=== PATIENT | female | born 1960 | race Caucasian/White ===

== ENCOUNTER 2016-08-11 14:50 | Outpatient (CLI) | payer OTHER ==
[~2016-08-11] VITALS: Ht 160 cm; Wt 111.4 kg
[~2016-08-11 14:50] MED LIST: CALC500C16 PO; CALC600T10; CALC600T3 PO; CALCCHW12 OR; CALCTAB22 OR; FERR325T; GLUC1CAP10 PO; IRON28TA; LISI10TA2 PO; LISI10TA4 OR; LISI5TAB; LISI5TAB OR; MULT1TAB10 PO; MULTIVIT; MULTIVIT OR; PEPC1TAB4 PO; PEPC20TA2; PEPC20TA2 OR; ROLAIDS; ROLAIDS OR; SOLU500I IV; TUMS500C OR; VITA50003 PO; VITAMIN D50000 UNT OR; methylPREDNISolone 500 MG, VIAL MATE ADAPTER 1 EACH in D5W 250 ML IV ONE
== END 2016-08-11 16:25 | disposition home or self-care (01) ==
LOC: M INFU 14:50
PROVIDERS: ATTEND Psychiatry & Neurology Neurology
DX: G35 Multiple sclerosis (principal)
CPT/HCPCS: 96365; J2930

== ENCOUNTER 2016-09-08 14:43 | Outpatient (CLI) | payer OTHER ==
[~2016-09-08] VITALS: Ht 160 cm; Wt 111.4 kg
== END 2016-09-08 16:30 | disposition home or self-care (01) ==
LOC: M INFU 14:43
PROVIDERS: ATTEND Psychiatry & Neurology Neurology
DX: G35 Multiple sclerosis (principal)
CPT/HCPCS: 96365; J2930

== ENCOUNTER 2016-10-06 12:44 | Outpatient (CLI) | payer OTHER ==
[~2016-10-06 12:44] MED LIST changes: -methylPREDNISolone 500 MG, VIAL MATE ADAPTER 1 EACH in D5W 250 ML IV ONE
[2016-10-06] MEDS ORDERED: methylPREDNISolone 500 MG, VIAL MATE ADAPTER 1 EACH in D5W 250 ML IV ONE (13:00)
== END 2016-10-06 14:35 | disposition home or self-care (01) ==
LOC: M INFU 12:44
PROVIDERS: ATTEND Psychiatry & Neurology Neurology
DX: G35 Multiple sclerosis (principal)
CPT/HCPCS: 96365; J2930

== ENCOUNTER 2016-11-10 14:47 | Outpatient (CLI) | payer OTHER ==
[~2016-11-10] VITALS: Ht 160 cm; Wt 111.4 kg
[~2016-11-10 14:47] MED LIST changes: +methylPREDNISolone 500 MG, VIAL MATE ADAPTER 1 EACH in D5W 250 ML IV ONE
== END 2016-11-10 16:30 | disposition home or self-care (01) ==
LOC: M INFU 14:47
PROVIDERS: ATTEND Psychiatry & Neurology Neurology
DX: G35 Multiple sclerosis (principal); Z79.899 Other long term (current) drug therapy; Z79.82 Long term (current) use of aspirin; I10 Essential (primary) hypertension; E78.00 Pure hypercholesterolemia, unspecified; D69.6 Thrombocytopenia, unspecified
CPT/HCPCS: 96365; J2930

== ENCOUNTER 2016-12-15 14:56 | Outpatient (CLI) | payer OTHER ==
[~2016-12-15] VITALS: Ht 160 cm; Wt 111.4 kg
== END 2016-12-15 16:50 | disposition home or self-care (01) ==
LOC: M INFU 14:56
PROVIDERS: ATTEND Psychiatry & Neurology Neurology
DX: G35 Multiple sclerosis (principal); Z88.8 Allergy status to other drugs, medicaments and biological substances; Z79.899 Other long term (current) drug therapy
CPT/HCPCS: 96365; J2930

== ENCOUNTER 2017-01-12 14:53 | Outpatient (CLI) | payer OTHER ==
[~2017-01-12] VITALS: Ht 160 cm; Wt 111.4 kg
[~2017-01-12 14:53] MED LIST changes: +VITA1CAP40 PO; -VITA50003 PO
== END 2017-01-12 16:45 ==
LOC: M INFU 14:53
PROVIDERS: ATTEND Psychiatry & Neurology Neurology
DX: G35 Multiple sclerosis (principal); Z79.899 Other long term (current) drug therapy; I10 Essential (primary) hypertension; E78.00 Pure hypercholesterolemia, unspecified; D69.6 Thrombocytopenia, unspecified
CPT/HCPCS: 96365; J2930

== ENCOUNTER 2017-02-16 14:49 | Outpatient (CLI) | payer OTHER ==
[~2017-02-16 14:49] MED LIST changes: -methylPREDNISolone 500 MG, VIAL MATE ADAPTER 1 EACH in D5W 250 ML IV ONE
[2017-02-16] MEDS ORDERED: methylPREDNISolone 500 MG, VIAL MATE ADAPTER 1 EACH in D5W 250 ML IV ONE (16:00)
== END 2017-02-16 16:50 | disposition home or self-care (01) ==
LOC: M INFU 14:49
PROVIDERS: ATTEND Psychiatry & Neurology Neurology
DX: G35 Multiple sclerosis (principal); Z79.899 Other long term (current) drug therapy; I10 Essential (primary) hypertension; D69.6 Thrombocytopenia, unspecified; Z85.038 Personal history of other malignant neoplasm of large intestine; Z88.8 Allergy status to other drugs, medicaments and biological substances
CPT/HCPCS: 96365; J2930

== ENCOUNTER 2017-03-16 14:50 | Outpatient (CLI) | payer OTHER ==
[~2017-03-16 14:50] MED LIST changes: +methylPREDNISolone 500 MG, VIAL MATE ADAPTER 1 EACH in D5W 250 ML IV ONE
== END 2017-03-16 16:10 | disposition home or self-care (01) ==
LOC: M INFU 14:50
PROVIDERS: ATTEND Psychiatry & Neurology Neurology
DX: G35 Multiple sclerosis (principal); I10 Essential (primary) hypertension; D69.6 Thrombocytopenia, unspecified; Z88.8 Allergy status to other drugs, medicaments and biological substances; Z79.899 Other long term (current) drug therapy
CPT/HCPCS: 96365; J2930

== ENCOUNTER → 2017-05-22 | Outpatient (CLI) | payer OTHER ==
[~2017-05-22] MED LIST changes: -methylPREDNISolone 500 MG, VIAL MATE ADAPTER 1 EACH in D5W 250 ML IV ONE
[2017-05-22 16:20] LABS: BLOOD UREA NITROGEN 15 MG/DL (7-18); CREATININE FOR GFR 0.78 MG/DL (0.55-1.02); GLOMERULAR FILTRATION RATE > 60.0 (>51)
== END ==
LOC: M LAB 15:05
PROVIDERS: ATTEND Psychiatry & Neurology Neurology
DX: I10 Essential (primary) hypertension (principal)

== ENCOUNTER 2017-05-25 14:51 | Outpatient (CLI) | payer OTHER ==
[2017-05-25] MEDS ORDERED: methylPREDNISolone 500 MG, VIAL MATE ADAPTER 1 EACH in D5W 250 ML IV ONE (15:00)
== END 2017-05-25 16:20 | disposition home or self-care (01) ==
LOC: M INFU 14:51
PROVIDERS: ATTEND Psychiatry & Neurology Neurology
DX: G35 Multiple sclerosis (principal); Z85.038 Personal history of other malignant neoplasm of large intestine; Z92.21 Personal history of antineoplastic chemotherapy; Z88.8 Allergy status to other drugs, medicaments and biological substances; Z79.899 Other long term (current) drug therapy
CPT/HCPCS: 96365; J2930

== ENCOUNTER 2017-06-29 13:56 | Outpatient (CLI) | payer OTHER ==
[2017-06-29] MEDS: methylPREDNISolone 500 MG, VIAL MATE ADAPTER 1 EACH in D5W 250 ML IV (14:10)
== END 2017-06-29 15:30 ==
LOC: M INFU 13:56
DX: G35 Multiple sclerosis (principal); I10 Essential (primary) hypertension; Z79.899 Other long term (current) drug therapy; Z88.8 Allergy status to other drugs, medicaments and biological substances; D69.6 Thrombocytopenia, unspecified
CPT/HCPCS: 96365

== ENCOUNTER 2017-07-27 14:54 | Outpatient (CLI) | payer OTHER ==
[2017-07-27] MEDS: methylPREDNISolone 500 MG, VIAL MATE ADAPTER 1 EACH in D5W 250 ML IV (15:26)
== END 2017-07-27 16:30 | disposition home or self-care (01) ==
LOC: M INFU 14:54
DX: G35 Multiple sclerosis (principal); I10 Essential (primary) hypertension; Z79.899 Other long term (current) drug therapy; Z88.8 Allergy status to other drugs, medicaments and biological substances
CPT/HCPCS: J2930

== ENCOUNTER 2017-08-24 14:51 | Outpatient (CLI) | payer OTHER ==
[2017-08-24] MEDS: methylPREDNISolone 500 MG, VIAL MATE ADAPTER 1 EACH in D5W 250 ML IV (15:16)
== END 2017-08-24 16:30 | disposition home or self-care (01) ==
LOC: M INFU 14:51
DX: G35 Multiple sclerosis (principal); Z79.899 Other long term (current) drug therapy; Z88.8 Allergy status to other drugs, medicaments and biological substances
CPT/HCPCS: J2930

== ENCOUNTER 2017-10-26 13:46 | Outpatient (CLI) | payer OTHER ==
[2017-10-26] MEDS: methylPREDNISolone 500 MG, VIAL MATE ADAPTER 1 EACH in D5W 250 ML IV (14:08)
== END 2017-10-26 15:20 ==
LOC: M INFU 13:46
DX: G35 Multiple sclerosis (principal); I10 Essential (primary) hypertension; D64.9 Anemia, unspecified; Z79.899 Other long term (current) drug therapy; Z88.8 Allergy status to other drugs, medicaments and biological substances
CPT/HCPCS: J2930

== ENCOUNTER → 2017-11-05 | Outpatient (REF) | payer OTHER ==
[2017-11-05 13:02] LABS: BASO % 0.3 % (0.0-1.0); EOS # 0.1 10^3/uL (0.0-0.50); EOS % 1.3 % (0.0-3.0); HEMATOCRIT 42.3 % (36.0-47.0); HEMOGLOBIN 14.4 g/dl (12.0-15.5); IMMATURE GRANULOCYTE % 0.4 % (0-3.0); LYMPH # 2.4 10^3/uL (1.5-4.5); LYMPH % 26.4 % (24.0-44.0); MEAN CORPUSCULAR HEMOGLOBIN 28.3 pg (27.0-33.0); MEAN CORPUSCULAR VOLUME 83.1 fl (80.0-96.0); MONO # 0.7 10^3/uL (0.0-0.8); MONO % 7.8 % (0.0-5.0); NEUTROPHILS # 5.8 10^3/uL (1.8-7.7); NEUTROPHILS % 63.8 % (36.0-66.0); RED BLOOD COUNT 5.09 10^6/uL (4.00-5.40); RED CELL DISTRIBUTION WIDTH 13.1 % (11.5-14.5); WHITE BLOOD COUNT 9.1 10^3/uL (4.0-10.0)
[2017-11-05 13:47] LABS: PLATELET COUNT, AUTOMATED 35 10^3/uL (150-450)
[2017-11-05 13:48] LABS: IMMATURE PLATELET FRACTION % 18.7 % (0.0-9.6)
[2017-11-05 14:03] LABS: FOLATE > 24.0 NG/ML; VITAMIN B12 LEVEL 428 PG/ML
[2017-11-05 14:21] LABS: ALBUMIN 3.7 GM/DL (3.2-5.2); ALBUMIN/GLOBULIN RATIO 1.28 (1.00-1.93); ALKALINE PHOSPHATASE 90 U/L (45-117); ALT/SGPT 26 U/L (12-78); ANION GAP 8 MEQ/L (8-16); AST/SGOT 13 U/L (7-37); BILIRUBIN,TOTAL 0.4 MG/DL (0.2-1.0); BLOOD UREA NITROGEN 19 MG/DL (7-18); CALCIUM LEVEL 9.1 MG/DL (8.5-10.1); CARBON DIOXIDE LEVEL 27 MEQ/L (21-32); CHLORIDE LEVEL 108 MEQ/L (98-107); CREATININE FOR GFR 0.77 MG/DL (0.55-1.30); GLOMERULAR FILTRATION RATE > 60.0 (>51); GLUCOSE, FASTING 81 MG/DL (70-100); POTASSIUM SERUM 3.7 MEQ/L (3.5-5.1); SODIUM LEVEL 143 MEQ/L (136-145); TOTAL PROTEIN 6.6 GM/DL (6.4-8.2)
== END ==
LOC: M LABNEURO 11:05
DX: G35 Multiple sclerosis (principal)
CPT/HCPCS: 82746

== ENCOUNTER 2017-11-18 08:53 | Emergency (ER) | payer OTHER ==
[2017-11-18 09:46] LABS: HEMATOCRIT 41.7 % (36.0-47.0); HEMOGLOBIN 14.1 g/dl (12.0-15.5); MEAN CORPUSCULAR HEMOGLOBIN 28.1 pg (27.0-33.0); MEAN CORPUSCULAR HGB CONC 33.8 g/dl (32.0-36.5); MEAN CORPUSCULAR VOLUME 83.1 fl (80.0-96.0); RED BLOOD COUNT 5.02 10^6/uL (4.00-5.40); WHITE BLOOD COUNT 6.1 10^3/uL (4.0-10.0)
[2017-11-18 09:56] LABS: ANION GAP 6 MEQ/L (8-16); BLOOD UREA NITROGEN 13 MG/DL (7-18); CALCIUM LEVEL 8.5 MG/DL (8.5-10.1); CARBON DIOXIDE LEVEL 29 MEQ/L (21-32); CHLORIDE LEVEL 108 MEQ/L (98-107); CREATININE FOR GFR 0.84 MG/DL (0.55-1.30); GLOMERULAR FILTRATION RATE > 60.0 (>51); GLUCOSE, FASTING 99 MG/DL (70-100); POTASSIUM SERUM 3.7 MEQ/L (3.5-5.1); SODIUM LEVEL 143 MEQ/L (136-145)
[2017-11-18 10:01] LABS: INR 0.94; PROTHROMBIN TIME 12.7 SECONDS (12.4-14.5)
[2017-11-18 10:02] LABS: PARTIAL THROMBOPLASTIN TIME 29.8 SECONDS (26.8-37.9)
[2017-11-18 10:10] LABS: PLATELET COUNT, AUTOMATED 49 10^3/uL (150-450)
[2017-11-18 10:11] LABS: IMMATURE PLATELET FRACTION % 13.2 % (0.0-9.6)
== END 2017-11-18 12:03 | disposition home or self-care (01) ==
LOC: M ED 08:53
DX: N93.8 Other specified abnormal uterine and vaginal bleeding (principal); G35 Multiple sclerosis; D69.3 Immune thrombocytopenic purpura; Z79.899 Other long term (current) drug therapy; Z88.8 Allergy status to other drugs, medicaments and biological substances
CPT/HCPCS: 76856

== ENCOUNTER 2017-11-30 14:52 | Outpatient (CLI) | payer OTHER ==
[2017-11-30] MEDS: methylPREDNISolone 500 MG, VIAL MATE ADAPTER 1 EACH in D5W 250 ML IV (15:20)
== END 2017-11-30 16:35 | disposition home or self-care (01) ==
LOC: M INFU 14:52
DX: G35 Multiple sclerosis (principal); I10 Essential (primary) hypertension; Z79.899 Other long term (current) drug therapy; Z88.8 Allergy status to other drugs, medicaments and biological substances
CPT/HCPCS: J2930

== ENCOUNTER 2017-12-28 14:49 | Outpatient (CLI) | payer OTHER ==
[2017-12-28] MEDS: methylPREDNISolone 500 MG, VIAL MATE ADAPTER 1 EACH in D5W 250 ML IV (15:09)
== END 2017-12-28 16:25 | disposition home or self-care (01) ==
LOC: M INFU 14:49
DX: G35 Multiple sclerosis (principal); Z88.8 Allergy status to other drugs, medicaments and biological substances; Z79.899 Other long term (current) drug therapy
CPT/HCPCS: J2930

== ENCOUNTER 2018-01-25 15:01 | Outpatient (CLI) | payer OTHER ==
[2018-01-25] MEDS: methylPREDNISolone 500 MG, VIAL MATE ADAPTER 1 EACH in D5W 250 ML IV (15:18)
== END 2018-01-25 16:30 | disposition home or self-care (01) ==
LOC: M INFU 15:01
DX: G35 Multiple sclerosis (principal); Z79.899 Other long term (current) drug therapy; Z88.8 Allergy status to other drugs, medicaments and biological substances
CPT/HCPCS: J2930

== ENCOUNTER 2018-03-01 14:52 | Outpatient (CLI) | payer OTHER ==
[2018-03-01] MEDS: methylPREDNISolone 500 MG, VIAL MATE ADAPTER 1 EACH in D5W 250 ML IV (15:21)
== END 2018-03-01 16:35 | disposition home or self-care (01) ==
LOC: M INFU 14:52
DX: G35 Multiple sclerosis (principal); M12.9 Arthropathy, unspecified; D69.3 Immune thrombocytopenic purpura; Z79.899 Other long term (current) drug therapy; Z88.8 Allergy status to other drugs, medicaments and biological substances; Z91.048 Other nonmedicinal substance allergy status; Z90.710 Acquired absence of both cervix and uterus; Z90.49 Acquired absence of other specified parts of digestive tract
CPT/HCPCS: J2930

== ENCOUNTER 2018-03-21 12:44 | Day surgery (SDC) | payer OTHER ==
[~2018-03-21 12:44] MED LIST changes: -CALC500C16 PO; -CALC600T10; -CALC600T3 PO; -CALCCHW12 OR; -CALCTAB22 OR; -FERR325T; -GLUC1CAP10 PO; -IRON28TA; +LIDOCAINE 1% MDV 20ML VIAL SQ; -LISI10TA2 PO; -LISI10TA4 OR; -LISI5TAB; -LISI5TAB OR; +LR 1,000 ML IV; -MULT1TAB10 PO; -MULTIVIT; -MULTIVIT OR; -PEPC1TAB4 PO; -PEPC20TA2; -PEPC20TA2 OR; -ROLAIDS; -ROLAIDS OR; -SOLU500I IV; -TUMS500C OR; -VITA1CAP40 PO; -VITAMIN D50000 UNT OR
[2018-03-21 13:05] LABS: HEMATOCRIT 41.3 % (36.0-47.0); HEMOGLOBIN 13.8 g/dl (12.0-15.5); MEAN CORPUSCULAR HEMOGLOBIN 28.2 pg (27.0-33.0); MEAN CORPUSCULAR HGB CONC 33.4 g/dl (32.0-36.5); MEAN CORPUSCULAR VOLUME 84.3 fl (80.0-96.0); PLATELET COUNT, AUTOMATED 243 10^3/uL (150-450); RED CELL DISTRIBUTION WIDTH 13.1 % (11.5-14.5); WHITE BLOOD COUNT 7.1 10^3/uL (4.0-10.0)
[2018-03-21] MEDS ORDERED: METOCLOPRAMIDE INJ 10MG/2ML VIAL (J2765) As Ordered (13:21)
[2018-03-21] MEDS ORDERED: PROPOFOL 200 MG/20 ML VIAL As Ordered (13:21)
[2018-03-21] MEDS ORDERED: LIDOCAINE 2% INJ 100 MG/5 ML SDV (FOR ANES.) As Ordered (13:21)
[2018-03-21] MEDS ORDERED: ONDANSETRON 4MG/2ML VIAL (J2405) As Ordered (13:21)
[2018-03-21] MEDS ORDERED: fentaNYL 100 MCG/2 ML INJECTION (J3010) As Ordered (13:22)
[2018-03-21] MEDS ORDERED: MIDAZOLAM INJ 2 MG/2 ML VIAL (J2250) As Ordered (13:22)
[2018-03-21] MEDS: SILVER NITRATE APPLICATOR As Ordered (13:23)
[2018-03-21] MEDS: LIDOCAINE W/EPINEPHRINE 1% 20ML VIAL As Ordered (14:39)
[2018-03-21] MEDS ORDERED: LR 1,000 ML IV ×2 (15:30→15:45)
[2018-03-21] MEDS ORDERED: fentaNYL 100 MCG/2 ML INJECTION (J3010) IV (15:30)
[2018-03-21] MEDS ORDERED: ONDANSETRON 4MG/2ML VIAL (J2405) IV (15:30)
[2018-03-21] MEDS ORDERED: PERCOCET 5MG/325MG TAB PO (15:30)
== END 2018-03-21 17:20 | disposition home or self-care (01) ==
LOC: M SDC 12:44
DX: N84.0 Polyp of corpus uteri (principal); N95.0 Postmenopausal bleeding; I10 Essential (primary) hypertension; K21.9 Gastro-esophageal reflux disease without esophagitis; G35 Multiple sclerosis; Z92.21 Personal history of antineoplastic chemotherapy; Z85.00 Personal history of malignant neoplasm of unspecified digestive organ; Z79.899 Other long term (current) drug therapy
CPT/HCPCS: 58558

== ENCOUNTER 2018-04-26 14:49 | Outpatient (CLI) | payer OTHER ==
[2018-04-26] MEDS: methylPREDNISolone 500 MG, VIAL MATE ADAPTER 1 EACH in D5W 250 ML IV (15:07)
== END 2018-04-26 16:25 | disposition home or self-care (01) ==
LOC: M INFU 14:49
DX: G35 Multiple sclerosis (principal)
CPT/HCPCS: J2930

== ENCOUNTER → 2018-04-30 | Outpatient (CLI) | payer OTHER | LOC: M RAD 08:43 | DX: Z12.31 Encounter for screening mammogram for malignant neoplasm of breast (principal) | CPT/HCPCS: 77067 ==

== ENCOUNTER 2018-05-31 15:03 | Outpatient (CLI) | payer OTHER ==
[2018-05-31] MEDS: methylPREDNISolone 500 MG, VIAL MATE ADAPTER 1 EACH in D5W 250 ML IV (15:50)
== END 2018-05-31 17:00 | disposition home or self-care (01) ==
LOC: M INFU 15:03
DX: G35 Multiple sclerosis (principal)
CPT/HCPCS: J2930

== ENCOUNTER 2018-06-28 14:50 | Outpatient (CLI) | payer OTHER ==
[~2018-06-28] VITALS: Ht 157.5 cm; Wt 118.1 kg
[~2018-06-28 14:50] MED LIST changes: +CALC500C16 PO; +CALC600T10; +CALC600T3 PO; +CALC600T57 PO; +CALCCHW12 OR; +CALCTAB22 OR; +FERR325T; +GLUC1CAP10 PO; +GREE1CAP5 PO; +IRON28TA; +KELP100T PO; -LIDOCAINE 1% MDV 20ML VIAL SQ; +LISI10TA2 PO; +LISI10TA4 OR; +LISI5TAB; +LISI5TAB OR; -LR 1,000 ML IV; +MULT1TAB10 PO; +MULTIVIT; +MULTIVIT OR; +PEPC1TAB5 PO; +PEPC20TA2; +PEPC20TA2 OR; +PERCOCET PO; +ROLAIDS; +ROLAIDS OR; +SOLU500I IV; +TUMS500C OR; +VITA50005 PO; +VITAMIN D50000 UNT OR
[2018-06-28 14:55] VITALS: BP 118/65
[2018-06-28] MEDS ORDERED: methylPREDNISolone 500 MG, VIAL MATE ADAPTER 1 EACH in D5W 250 ML IV ONE (15:00)
[2018-06-28 16:40] VITALS: BP 129/60
== END 2018-06-28 16:45 | disposition home or self-care (01) ==
LOC: M INFU 14:50
PROVIDERS: ATTEND Psychiatry & Neurology Neurology
DX: G35 Multiple sclerosis (principal); Z79.899 Other long term (current) drug therapy; Z88.8 Allergy status to other drugs, medicaments and biological substances; Z91.048 Other nonmedicinal substance allergy status
CPT/HCPCS: 96365; 96366; J2930

== ENCOUNTER 2018-07-26 15:03 | Outpatient (CLI) | payer OTHER ==
[~2018-07-26] VITALS: Ht 157.5 cm; Wt 118.1 kg
[~2018-07-26 15:03] MED LIST changes: +methylPREDNISolone 500 MG, VIAL MATE ADAPTER 1 EACH in D5W 250 ML IV ONE
[2018-07-26 15:10] VITALS: BP 144/74
[2018-07-26 16:30] VITALS: BP 133/68
== END 2018-07-26 16:30 | disposition home or self-care (01) ==
LOC: M INFU 15:03
PROVIDERS: ATTEND Psychiatry & Neurology Neurology
DX: G35 Multiple sclerosis (principal)
CPT/HCPCS: 96365; J2930

== ENCOUNTER 2018-08-23 15:04 | Outpatient (CLI) | payer OTHER ==
[~2018-08-23] VITALS: Ht 157.5 cm; Wt 118.0 kg
[2018-08-23 15:05] VITALS: BP 108/61
[2018-08-23 16:44] VITALS: BP 127/67
== END 2018-08-23 16:45 | disposition home or self-care (01) ==
LOC: M INFU 15:04
PROVIDERS: ATTEND Psychiatry & Neurology Neurology
DX: G35 Multiple sclerosis (principal)
CPT/HCPCS: 96365; J2930

== ENCOUNTER 2018-09-27 15:14 | Outpatient (CLI) | payer OTHER ==
[~2018-09-27] VITALS: Ht 154.9 cm; Wt 118.1 kg
[2018-09-27 15:10] VITALS: BP 138/66
[~2018-09-27 15:14] MED LIST changes: -methylPREDNISolone 500 MG, VIAL MATE ADAPTER 1 EACH in D5W 250 ML IV ONE
[2018-09-27] MEDS ORDERED: methylPREDNISolone 500 MG VIAL (J2930) As Ordered ONE (15:27)
[2018-09-27] MEDS ORDERED: methylPREDNISolone 500 MG, VIAL MATE ADAPTER 1 EACH in D5W 250 ML IV ONE (15:30)
[2018-09-27 17:04] VITALS: BP 139/68
== END 2018-09-27 17:00 | disposition home or self-care (01) ==
LOC: M INFU 15:14
PROVIDERS: ATTEND Psychiatry & Neurology Neurology
DX: G35 Multiple sclerosis (principal)
CPT/HCPCS: 96365; J2930

== ENCOUNTER 2018-10-25 14:51 | Outpatient (CLI) | payer OTHER ==
[~2018-10-25] VITALS: Ht 157.5 cm; Wt 118.0 kg
[~2018-10-25 14:51] MED LIST changes: +methylPREDNISolone 500 MG, VIAL MATE ADAPTER 1 EACH in D5W 250 ML IV ONE
[2018-10-25 15:00] VITALS: BP 140/62
[2018-10-25 16:18] VITALS: BP 131/62
== END 2018-10-25 16:15 | disposition home or self-care (01) ==
LOC: M INFU 14:51
PROVIDERS: ATTEND Psychiatry & Neurology Neurology
DX: G35 Multiple sclerosis (principal)
CPT/HCPCS: 96365; J2930

== ENCOUNTER → 2018-11-08 | Outpatient (CLI) | payer OTHER ==
[~2018-11-08] MED LIST changes: -methylPREDNISolone 500 MG, VIAL MATE ADAPTER 1 EACH in D5W 250 ML IV ONE
[2018-11-08 16:49] LABS: BLOOD UREA NITROGEN 16 MG/DL (7-18); CREATININE FOR GFR 0.86 MG/DL (0.55-1.30); GLOMERULAR FILTRATION RATE > 60.0 (>51)
== END ==
LOC: M WUC 12:29
PROVIDERS: ATTEND Psychiatry & Neurology Neurology
DX: G35 Multiple sclerosis (principal); I10 Essential (primary) hypertension

== ENCOUNTER 2019-01-03 14:50 | Outpatient (CLI) | payer OTHER ==
[~2019-01-03] VITALS: Ht 154.9 cm; Wt 118.0 kg
[~2019-01-03 14:50] MED LIST changes: +LISI10TA15 PO; -LISI10TA2 PO
[2019-01-03 14:55] VITALS: BP 120/65
[2019-01-03] MEDS ORDERED: methylPREDNISolone 500 MG, VIAL MATE ADAPTER 1 EACH in D5W 250 ML IV ONE (15:15)
[2019-01-03 16:20] VITALS: BP 131/74
[2019-01-31] MEDS ORDERED: OMEP40CA97 PO (15:27)
== END 2019-01-03 16:25 | disposition home or self-care (01) ==
LOC: M INFU 14:50
PROVIDERS: ATTEND Psychiatry & Neurology Neurology
DX: G35 Multiple sclerosis (principal)
CPT/HCPCS: 96365; J2930

== ENCOUNTER 2019-01-31 14:53 | Outpatient (CLI) | payer OTHER ==
[~2019-01-31] VITALS: Ht 157.5 cm; Wt 118.0 kg
[~2019-01-31 14:53] MED LIST changes: -LISI10TA15 PO; +LISI10TA2 PO
[2019-01-31 15:00] VITALS: BP 128/79
[2019-01-31] MEDS ORDERED: OMEP40CA2 PO (15:27)
[2019-01-31] MEDS ORDERED: methylPREDNISolone 500 MG, VIAL MATE ADAPTER 1 EACH in D5W 250 ML IV ONE (15:30)
[2019-01-31] MEDS ORDERED: APPLTAB3 PO (15:30)
[2019-01-31] MEDS ORDERED: ACET-861 PO (15:31)
[2019-01-31 16:25] VITALS: BP 121/73
== END 2019-01-31 16:25 | disposition home or self-care (01) ==
LOC: M INFU 14:53
PROVIDERS: ATTEND Psychiatry & Neurology Neurology
DX: G35 Multiple sclerosis (principal)
CPT/HCPCS: 96365; J2930

== ENCOUNTER 2019-03-07 14:48 | Outpatient (CLI) | payer OTHER ==
[~2019-03-07] VITALS: Ht 157.5 cm; Wt 118.0 kg
[~2019-03-07 14:48] MED LIST changes: +ACET-861 PO; +APPLTAB3 PO; +LISI10TA15 PO; -LISI10TA2 PO; +OMEP40CA2 PO
[2019-03-07 14:50] VITALS: BP 120/75
[2019-03-07] MEDS ORDERED: methylPREDNISolone 500 MG, VIAL MATE ADAPTER 1 EACH in D5W 250 ML IV ONE (15:00)
[2019-03-07 16:40] VITALS: BP 118/68
== END 2019-03-07 16:40 | disposition home or self-care (01) ==
LOC: M INFU 14:48
PROVIDERS: ATTEND Psychiatry & Neurology Neurology
DX: G35 Multiple sclerosis (principal)
CPT/HCPCS: 96365; J2930

== ENCOUNTER 2019-04-04 14:56 | Outpatient (CLI) | payer OTHER ==
[~2019-04-04] VITALS: Ht 157.5 cm; Wt 118.0 kg
[2019-04-04 15:00] VITALS: BP 115/72
[2019-04-04] MEDS ORDERED: methylPREDNISolone 500 MG, VIAL MATE ADAPTER 1 EACH in D5W 250 ML IV ONE (16:00)
[2019-04-04 17:00] VITALS: BP 144/77
== END 2019-04-04 17:00 | disposition home or self-care (01) ==
LOC: M INFU 14:56
PROVIDERS: ATTEND Psychiatry & Neurology Neurology
DX: G35 Multiple sclerosis (principal)
CPT/HCPCS: 96365; J2930

== ENCOUNTER 2019-05-02 14:56 | Outpatient (CLI) | payer OTHER ==
[~2019-05-02] VITALS: Ht 157.5 cm; Wt 118.0 kg
[~2019-05-02 14:56] MED LIST changes: -OMEP40CA2 PO; +OMEP40CA97 PO
[2019-05-02 15:00] VITALS: BP 123/61
[2019-05-02] MEDS ORDERED: methylPREDNISolone 500 MG VIAL (J2930) IV ONE (15:00)
[2019-05-02 16:45] VITALS: BP 127/77
== END 2019-05-02 16:45 | disposition home or self-care (01) ==
LOC: M INFU 14:56
PROVIDERS: ATTEND Psychiatry & Neurology Neurology
DX: G35 Multiple sclerosis (principal)
CPT/HCPCS: 96365; J2930

== ENCOUNTER → 2019-05-05 | Outpatient (REF) | payer OTHER ==
[2019-05-05 19:28] LABS: ALBUMIN 3.8 GM/DL (3.2-5.2); ALT/SGPT 30 U/L (12-78); BILIRUBIN,TOTAL 0.4 MG/DL (0.2-1.0); BLOOD UREA NITROGEN 20 MG/DL (7-18); CALCIUM LEVEL 9.1 MG/DL (8.5-10.1); CARBON DIOXIDE LEVEL 31 MEQ/L (21-32); CHLORIDE LEVEL 106 MEQ/L (98-107); CREATININE FOR GFR 0.84 MG/DL (0.55-1.30); GLOMERULAR FILTRATION RATE > 60.0 (>51); GLUCOSE, FASTING 81 MG/DL (70-100); POTASSIUM SERUM 4.1 MEQ/L (3.5-5.1); SODIUM LEVEL 143 MEQ/L (136-145); TOTAL PROTEIN 6.4 GM/DL (6.4-8.2)
[2019-05-05 19:31] LABS: BASO # 0.1 10^3/uL (0.0-0.2); BASO % 0.5 % (0.0-1.0); EOS # 0.1 10^3/uL (0.0-0.5); EOS % 1.3 % (0.0-3.0); HEMATOCRIT 44.1 % (36.0-47.0); HEMOGLOBIN 14.2 g/dl (12.0-15.5); LYMPH # 2.8 10^3/uL (1.5-5.0); LYMPH % 30.9 % (24.0-44.0); MEAN CORPUSCULAR HEMOGLOBIN 28.3 pg (27.0-33.0); MEAN CORPUSCULAR HGB CONC 32.2 g/dl (32.0-36.5); MEAN CORPUSCULAR VOLUME 87.8 fl (80.0-96.0); MONO # 0.6 10^3/uL (0.0-0.8); MONO % 6.8 % (0.0-5.0); NEUTROPHILS # 5.5 10^3/uL (1.5-8.5); NEUTROPHILS % 60.1 % (36.0-66.0); PLATELET COUNT, AUTOMATED 116 10^3/uL (150-450); RED BLOOD COUNT 5.02 10^6/uL (4.00-5.40); WHITE BLOOD COUNT 9.2 10^3/uL (4.0-10.0)
[2019-05-07 10:00] LABS: HEPATITIS B SURFACE ANTIBODY NEGATIVE (POSITIVE)
== END ==
LOC: M LABNEURO 18:16
PROVIDERS: ATTEND Psychiatry & Neurology Neurology
DX: G35 Multiple sclerosis (principal)

== ENCOUNTER 2019-05-29 07:46 | Outpatient (CLI) | payer OTHER ==
[~2019-05-29] VITALS: Ht 157.5 cm; Wt 118.0 kg
[2019-05-29] VITALS (12 sets, daily range): BP systolic 116–140; BP diastolic 62–85
[2019-05-29] MEDS ORDERED: OCRELIZUMAB 300 MG in NS 250 ML IV ONE (08:00)
[2019-05-29] MEDS ORDERED: diphenhydrAMINE 25 MG CAP PO ONE (08:00)
[2019-05-29] MEDS ORDERED: ACETAMINOPHEN TAB 650MG DOSE (2X325MG) PO ONE (08:00)
[2019-05-29] MEDS ORDERED: 0.22 MICRON FILTER (METHACHOLINE/OCREVUS) XX ONE (08:00)
[2019-05-29] MEDS ORDERED: methylPREDNISolone INJ 125 MG/2 ML VIAL (J2930) IV ONE (08:00)
== END 2019-05-29 14:20 | disposition home or self-care (01) ==
LOC: M INFU 07:46
PROVIDERS: ATTEND Psychiatry & Neurology Neurology
DX: G35 Multiple sclerosis (principal); Z88.8 Allergy status to other drugs, medicaments and biological substances; Z91.048 Other nonmedicinal substance allergy status
CPT/HCPCS: 96413; 96415; J2350; J2930

== ENCOUNTER → 2020-04-30 | Outpatient (REF) | payer OTHER ==
[~2020-04-30] MED LIST changes: -CALC600T3 PO; +CALC600T86 PO
== END ==
LOC: M SFHCWAGY 13:20
PROVIDERS: ATTEND Nurse Practitioner Women's Health
DX: Z12.4 Encounter for screening for malignant neoplasm of cervix (principal); R87.610 Atypical squamous cells of undetermined significance on cytologic smear of cervix (ASC-US)
CPT/HCPCS: 87624; G0123

== ENCOUNTER → 2020-04-30 | Outpatient (CLI) | payer OTHER ==
--- NOTE | 2020-04-30 11:23 | REPMRS ---
Patient History The patient states she had a clinical breast exam in 2019. Family history of breast cancer under age 50 in maternal grandmother, unknown cancer at age 65 in paternal grandfather, breast cancer in maternal cousin, breast cancer in maternal cousin, breast cancer in maternal cousin, breast cancer in maternal cousin. Took hormonal contraceptives for 3 years. 3D TOMOSYNTHESIS WAS PERFORMED. [facility] lifetime risk for breast cancer is 13.1%. Volpara breast density a. Digital Woman Screen Mammo: April 30, 2020 - Exam #: [id number] Bilateral CC and MLO view(s) were taken. Technologist: Jolie Gabriel, Technologist Prior study comparison: April 30, 2018, bilateral digital mammo screening bilat, performed at [facility]. January 18, 2016, digital woman screen mammo performed at [facility]. FINDINGS: There are scattered fibroglandular densities. There has been no change in the appearance of the mammogram from the prior studies. There is a mild amount of residual fibroglandular tissue which is fairly symmetric. There is no interval development of dominant mass, architectural distortion, or clustered microcalcification suggestive of malignancy. Assessment: BI-RADS/ACR category 1 mammogram. Negative Mammogram. Recommendation Routine screening mammogram in 1 year (for women over age 40). This mammogram was interpreted with the aid of an FDA-approved computer-aided dectection system. Electronically Signed By: Sergio Coto MD 04/30/20 1125
== END ==
LOC: M WHC 09:32
PROVIDERS: ATTEND Nurse Practitioner Women's Health
DX: Z12.31 Encounter for screening mammogram for malignant neoplasm of breast (principal); Z80.3 Family history of malignant neoplasm of breast

== ENCOUNTER 2021-10-13 08:18 | Outpatient (CLI) | payer OTHER ==
[~2021-10-13] VITALS: Ht 160 cm; Wt 117.7 kg
[2021-10-13] VITALS (7 sets, daily range): BP systolic 123–187; BP diastolic 74–82
[~2021-10-13 08:18] MED LIST changes: +ALBUTEROL SULFATE 2.5 MG/0.5 ML INH NEB SOLN INH PRN; +EPINEPHrine INJ 1 MG/ML 1ML AMP IM PRN; +ERGO500029 PO; +FAMOTIDINE 20MG/2ML VIAL IV PRN; +KELP150T2 PO; -LISI10TA15 PO; +LISI10TA24 PO; +MULTTAB61 PO; +OMEP40CA4 PO; -OMEP40CA97 PO; +dexameTHASONE 20MG/5ML VIAL (J1100 PER 1MG) IV PRN; +diphenhydrAMINE 50MG/ML VIAL (J1200) IV PRN; +methylPREDNISolone 125MG 2ML VIAL IV PRN
[2021-10-13] MEDS ORDERED: IMMUNE GLOBULIN 10% 20 GM in IV 1 EA IV ONE (08:30)
[2021-10-13] MEDS ORDERED: IMMUNE GLOBULIN 10% 40 GM in IV 1 EA IV ONE (08:30)
== END 2021-10-13 13:10 | disposition home or self-care (01) ==
LOC: M INFU 08:18
PROVIDERS: ATTEND Specialist
DX: D69.3 Immune thrombocytopenic purpura (principal)
CPT/HCPCS: 96365; 96366; 96375; J1100; J1459

== ENCOUNTER → 2021-10-15 | Outpatient (CLI) | payer OTHER ==
[~2021-10-15] MED LIST changes: -ALBUTEROL SULFATE 2.5 MG/0.5 ML INH NEB SOLN INH PRN; -EPINEPHrine INJ 1 MG/ML 1ML AMP IM PRN; -FAMOTIDINE 20MG/2ML VIAL IV PRN; -dexameTHASONE 20MG/5ML VIAL (J1100 PER 1MG) IV PRN; -diphenhydrAMINE 50MG/ML VIAL (J1200) IV PRN; -methylPREDNISolone 125MG 2ML VIAL IV PRN
== END ==
LOC: M LABSMTC 09:23
PROVIDERS: ATTEND Anesthesiology
DX: Z01.812 Encounter for preprocedural laboratory examination (principal); Z20.822 Contact with and (suspected) exposure to COVID-19

== ENCOUNTER 2021-10-20 07:22 | Day surgery (SDC) | payer OTHER ==
[~2021-10-20] VITALS: Ht 160 cm; Wt 116.5 kg
[~2021-10-20 07:22] MED LIST changes: +NS 1,000 ML IV ONE
[2021-10-20] MEDS ORDERED: LIDOCAINE 2% 100MG/5ML SDV (FOR ANES.) As Ordered ONE (07:31)
[2021-10-20] MEDS ORDERED: propofoL 200 MG/20 ML VIAL As Ordered ONE (07:31)
[2021-10-20 09:01] VITALS: BP 140/87
== END 2021-10-20 09:03 | disposition home or self-care (01) ==
LOC: M OPP 07:22
PROVIDERS: ATTEND Surgery
DX: Z12.11 Encounter for screening for malignant neoplasm of colon (principal); Z85.038 Personal history of other malignant neoplasm of large intestine; D12.6 Benign neoplasm of colon, unspecified; D69.6 Thrombocytopenia, unspecified; Z80.3 Family history of malignant neoplasm of breast; Z80.42 Family history of malignant neoplasm of prostate; Z80.8 Family history of malignant neoplasm of other organs or systems; Z85.028 Personal history of other malignant neoplasm of stomach; Z92.21 Personal history of antineoplastic chemotherapy; Z92.3 Personal history of irradiation; Z90.49 Acquired absence of other specified parts of digestive tract; Z79.899 Other long term (current) drug therapy; Z88.8 Allergy status to other drugs, medicaments and biological substances; Z91.048 Other nonmedicinal substance allergy status; Z91.89 Other specified personal risk factors, not elsewhere classified

== ENCOUNTER → 2022-01-31 | Outpatient (REF) | payer OTHER ==
[~2022-01-31] MED LIST changes: -NS 1,000 ML IV ONE
== END ==
LOC: M PLALAB 09:44
PROVIDERS: ATTEND Obstetrics & Gynecology
DX: Z01.419 Encounter for gynecological examination (general) (routine) without abnormal findings (principal)

== ENCOUNTER → 2022-01-31 | Outpatient (CLI) | payer OTHER | LOC: M WHC 07:58 | PROVIDERS: ATTEND Obstetrics & Gynecology | DX: Z12.31 Encounter for screening mammogram for malignant neoplasm of breast (principal) ==

== ENCOUNTER → 2022-04-05 | Outpatient (CLI) | payer OTHER | LOC: M RAD 16:36 | PROVIDERS: ATTEND Physician Assistant | DX: M17.11 Unilateral primary osteoarthritis, right knee (principal) ==

== ENCOUNTER → 2023-03-12 | Outpatient (CLI) | payer OTHER, SELFPAY | LOC: M WHC 09:26 | PROVIDERS: ATTEND Obstetrics & Gynecology | DX: Z12.31 Encounter for screening mammogram for malignant neoplasm of breast (principal) ==

== ENCOUNTER → 2024-05-19 | Outpatient (CLI) | payer OTHER | LOC: M WHC 11:03 | PROVIDERS: ATTEND Internal Medicine | DX: Z12.31 Encounter for screening mammogram for malignant neoplasm of breast (principal) ==

== ENCOUNTER → 2024-07-11 | Outpatient (CLI) | payer OTHER | LOC: M WHC 11:23 | PROVIDERS: ATTEND Obstetrics & Gynecology | DX: N95.0 Postmenopausal bleeding (principal); D25.1 Intramural leiomyoma of uterus; N88.8 Other specified noninflammatory disorders of cervix uteri ==

== ENCOUNTER → 2024-07-16 | Outpatient (CLI) | payer OTHER ==
[2024-07-16 19:18] LABS: CARCINOEMBRYONIC ANTIGEN < 2.0 NG/ML (<2.5)
[2024-07-16 19:33] LABS: CA19-9 TUMOR MARKER,CARBOHYDRA < 1.2 U/ML (<35.0)
== END ==
LOC: M PLALAB 14:18
PROVIDERS: ATTEND Obstetrics & Gynecology
DX: R93.89 Abnormal findings on diagnostic imaging of other specified body structures (principal)

== ENCOUNTER → 2024-08-05 | Outpatient (CLI) | payer OTHER ==
[~2024-08-05] MED LIST changes: +PROHANCE 279.3MG/ML 15ML VIAL ONE; +PROHANCE 279.3MG/ML 5ML VIAL ONE
== END ==
LOC: M PLAIMG 09:41
PROVIDERS: ATTEND Obstetrics & Gynecology
DX: R93.89 Abnormal findings on diagnostic imaging of other specified body structures (principal)

== ENCOUNTER → 2024-11-06 | Outpatient (CLI) | payer OTHER ==
[~2024-11-06] MED LIST changes: -PROHANCE 279.3MG/ML 15ML VIAL ONE; -PROHANCE 279.3MG/ML 5ML VIAL ONE
[2024-11-06 18:23] LABS: HEMATOCRIT 43.8 % (36.0-47.0); HEMOGLOBIN 14.4 g/dl (12.0-15.5); MEAN CORPUSCULAR HEMOGLOBIN 27.9 pg (27.0-33.0); MEAN CORPUSCULAR HGB CONC 32.9 g/dl (32.0-36.5); MEAN CORPUSCULAR VOLUME 84.7 fl (80.0-96.0); RED BLOOD COUNT 5.17 10^6/uL (4.00-5.40); WHITE BLOOD COUNT 7.8 10^3/uL (4.0-10.0)
[2024-11-06 18:54] LABS: PLATELET COUNT, AUTOMATED 62 10^3/uL (150-450)
== END ==
LOC: M PLALAB 14:49
PROVIDERS: ATTEND Obstetrics & Gynecology
DX: Z01.818 Encounter for other preprocedural examination (principal)

== ENCOUNTER → 2024-11-12 | Outpatient (CLI) | payer OTHER ==
[2024-11-12 17:33] LABS: BASO # 0.1 10^3/uL (0.0-0.2); BASO % 0.6 % (0.0-1.0); EOS # 0.2 10^3/uL (0.0-0.5); HEMATOCRIT 46.7 % (36.0-47.0); HEMOGLOBIN 14.7 g/dl (12.0-15.5); LYMPH # 2.4 10^3/uL (1.5-5.0); LYMPH % 29.3 % (24.0-44.0); MEAN CORPUSCULAR HEMOGLOBIN 27.1 pg (27.0-33.0); MEAN CORPUSCULAR HGB CONC 31.5 g/dl (32.0-36.5); MEAN CORPUSCULAR VOLUME 86.2 fl (80.0-96.0); MONO # 0.6 10^3/uL (0.0-0.8); MONO % 7.8 % (2.0-8.0); NEUTROPHILS # 4.9 10^3/uL (1.5-8.5); NEUTROPHILS % 60.1 % (36.0-66.0); RED BLOOD COUNT 5.42 10^6/uL (4.00-5.40); WHITE BLOOD COUNT 8.1 10^3/uL (4.0-10.0)
[2024-11-12 17:42] LABS: PLATELET COUNT, AUTOMATED 63 10^3/uL (150-450)
[2024-11-12 18:00] LABS: CALCIUM LEVEL 9.1 MG/DL (8.3-10.6); CREATININE FOR GFR 0.83 MG/DL (0.55-1.30); GLOMERULAR FILTRATION RATE 79.2 (>45)
== END ==
LOC: M WUC 15:20
PROVIDERS: ATTEND Internal Medicine
DX: Z01.818 Encounter for other preprocedural examination (principal)